=== PATIENT | female | born 1940 | race Caucasian/White ===

== ENCOUNTER 2017-08-18 11:52 | Emergency (ER) | payer MEDICARE ==
[~2017-08-18] VITALS: Ht 160 cm; Wt 54.0 kg
[2017-08-18 11:56] VITALS: BP 133/62; PULSE 100; RESP 17; TEMP 97.7; O2SAT 98
[2017-08-18] MEDS ORDERED: METO25TA3 PO (12:20)
[2017-08-18] MEDS ORDERED: ESTR.3 PO (12:20)
[2017-08-18] MEDS ORDERED: SODIUM CHLOR 0.9% 1000 ML INJ 1,000 ML IV SCH (12:39)
[2017-08-18] MEDS ORDERED: SODIUM CHLORIDE 0.9% FLUSH 10 ML FLUSH IV FLUSH PRN (12:45)
[2017-08-18] MEDS ORDERED: KETOROLAC TROMETHAMINE 30 MG/ML (IVP) VIAL IVP ONE (12:45)
[2017-08-18 12:49] VITALS: PULSE 110; RESP 18; O2SAT 99
[2017-08-18 12:52] LABS: AUTOMATED NEUTROPHIL # 5.3 TH/MM3 (1.8-7.7); BASOPHIL # 0.1 TH/MM3 (0-0.2); BASOPHIL % 0.7 % (0.0-2.0); EOSINOPHIL # 0.1 TH/MM3 (0-0.4); EOSINOPHIL % 1.8 % (0.0-4.0); HEMATOCRIT 39.6 % (35.0-46.0); HEMOGLOBIN 13.2 GM/DL (11.6-15.3); LYMPH % 25.9 % (9.0-44.0); LYMPHOCYTE # 2.1 TH/MM3 (1.0-4.8); MEAN CELL VOLUME 93.5 FL (80.0-100.0); MEAN CORPUSCULAR HEMOGLOBIN 31.1 PG (27.0-34.0); MEAN CORPUSCULAR HGB CONC 33.2 % (32.0-36.0); MEAN PLATELET VOLUME 9.7 FL (7.0-11.0); MONO % 7.3 % (0.0-8.0); MONOCYTE # 0.6 TH/MM3 (0-0.9); NEUT % 64.3 % (16.0-70.0); PLATELET COUNT 222 TH/MM3 (150-450); RED BLOOD COUNT 4.24 MIL/MM3 (4.00-5.30); RED CELL DISTRIBUTION WIDTH 13.1 % (11.6-17.2); WHITE BLOOD COUNT 8.2 TH/MM3 (4.0-11.0)
[2017-08-18 13:00] LABS: BACTERIA, URINE OCC /hpf; BILIRUBIN, URINE NEG (NEG); BLOOD, URINE NEG (NEG); GLUCOSE,URINE NEG (NEG); KETONE, URINE NEG (NEG); NITRITE,URINE NEG (NEG); SQUAMOUS EPITHELIAL CELL URINE 3 /hpf (0-5); URINE COLOR LIGHT-YELLOW (YELLW/STRAW); URINE LEUKOCYTE ESTERASE NEG (NEG)
[2017-08-18 13:39] LABS: ALBUMIN 3.4 GM/DL (3.4-5.0); BLOOD UREA NITROGEN 14 MG/DL (7-18); CALCIUM 8.8 MG/DL (8.5-10.1); CREATININE 0.73 MG/DL (0.50-1.00); GLOMERULAR FILTRATION RATE 77 ML/MIN (>89); GLUCOSE,RANDOM 85 MG/DL (74-106); TOTAL PROTEIN 7.3 GM/DL (6.4-8.2)
[2017-08-18 13:40] LABS: ALKALINE PHOSPHATASE 38 U/L (45-117); ALT (GPT) 15 U/L (10-53); AST (GOT) 16 U/L (15-37); BICARBONATE 26.8 MEQ/L (21.0-32.0); CHLORIDE 106 MEQ/L (98-107); SODIUM (NA) 140 MEQ/L (136-145); TOTAL BILIRUBIN ADULT 0.7 MG/DL (0.2-1.0)
[2017-08-18] MEDS ORDERED: CIPR-9 PO (14:05)
[2017-08-18] MEDS ORDERED: METR-1 PO (14:05)
--- NOTE | 2017-08-18 14:05 | PD ---
HPI Chief Complaint: Abdominal Pain Time Seen by Provider: 12:08 Travel History International Travel<30 days: No Contact w/Intl Traveler<30days: No Traveled to known affect area: No History of Present Illness HPI The patient 76 years old and complains of pain in the abdomen primarily in the left lower quadrant. She has a history of diverticulitis and states the pain feels similar. Typically the pain comes for about 3 days and then goes. This time around the pain has been going on for days now and she arrives with complaints as noticed. No diarrhea or bloody stool. No vomiting. Patient denies any history of colonoscopy. Timing constant. PFSH Past Medical History Cardiovascular Problems: Yes (IRREGULAR HEART JOVANNY, POSSIBLY A-FIB) Diverticulitis: Yes Tetanus Vaccination: Never Vaccinated Past Surgical History Cholecystectomy: Yes Hysterectomy: Yes (TOTAL ) Tonsillectomy: Yes Social History Alcohol Use: Yes (rare) Tobacco Use: No Substance Use: No Allergies-Medications (Allergen,Severity, Reaction): Coded Allergies: acetaminophen (Verified Allergy, Severe, Anaphylaxis, 08/18/17) codeine (Verified Allergy, Severe, Anaphylaxis, 08/18/17) Reported Meds & Prescriptions Reported Meds & Active Scripts Active Flagyl (Metronidazole) 500 Mg Tab 500 Mg PO TID 10 Days Cipro (Ciprofloxacin HCl) 500 Mg Tab 500 Mg PO BID 10 Days Reported Premarin (Estrogens Conjugated) 0.3 Mg Tab 0.3 Mg PO HS Metoprolol Tartrate 25 Mg Tab 12.5 Mg PO HS Review of Systems Except as stated in HPI: all other systems reviewed are Neg General / Constitutional: No: Fever Physical Exam Narrative GENERAL: 68-year-old female pleasant well-nourished well-developed Vital Signs Date Time Temp Pulse Resp B/P (MAP) Pulse Ox O2 Delivery O2 Flow Rate FiO2 08/18/17 12:49 110 18 99 Room Air 08/18/17 12:49 99 Room Air 08/18/17 12:10 18 08/18/17 11:56 97.7 100 17 133/62 (85) 98 SKIN: Warm and dry. HEAD: Atraumatic. Normocephalic. EYES: Pupils equal and round. No scleral icterus. No injection or drainage. ENT: No nasal bleeding or discharge. Mucous membranes pink and moist. NECK: Trachea midline. No JVD. CARDIOVASCULAR: Regular rate and rhythm. RESPIRATORY: No accessory muscle use. Clear to auscultation. Breath sounds equal bilaterally. GASTROINTESTINAL: Tenderness palpation in the left abdomen. The abdomen soft. MUSCULOSKELETAL: Extremities without clubbing, cyanosis, or edema. No obvious deformities. NEUROLOGICAL: Awake and alert. No obvious cranial nerve deficits. Motor grossly within normal limits. Five out of 5 muscle strength in the arms and legs. Normal speech. PSYCHIATRIC: Appropriate mood and affect; insight and judgment normal. Data Data Last Documented VS Vital Signs Date Time Temp Pulse Resp B/P (MAP) Pulse Ox O2 Delivery O2 Flow Rate FiO2 08/18/17 12:49 110 18 99 Room Air 08/18/17 11:56 97.7 133/62 (85) Orders Orders Complete Blood Count With Diff (08/18/17 12:24) Comprehensive Metabolic Panel (08/18/17 12:24) Iv Access Insert/Monitor (08/18/17 12:24) Oxygen Administration (08/18/17 12:24) Oximetry (08/18/17 12:24) Lipase (08/18/17 12:24) Urinalysis - C+S If Indicated (08/18/17 12:24) Ct Abd/Pel W/O Iv Contrast (08/18/17 12:39) Sodium Chlor 0.9% 1000 Ml Inj (Ns 1000 M (08/18/17 12:39) Sodium Chloride 0.9% Flush (Ns Flush) (08/18/17 12:45) Ketorolac Inj (Toradol Inj) (08/18/17 12:45) Ciprofloxacin (Cipro) (08/18/17 14:45) Metronidazole (Flagyl) (08/18/17 14:45) Ed Discharge Order (08/18/17 14:32) Labs Laboratory Tests Test 08/18/17 12:37 White Blood Count 8.2 TH/MM3 Red Blood Count 4.24 MIL/MM3 Hemoglobin 13.2 GM/DL Hematocrit 39.6 % Mean Corpuscular Volume 93.5 FL Mean Corpuscular Hemoglobin 31.1 PG Mean Corpuscular Hemoglobin Concent 33.2 % Red Cell Distribution Width 13.1 % Platelet Count 222 TH/MM3 Mean Platelet Volume 9.7 FL Neutrophils (%) (Auto) 64.3 % Lymphocytes (%) (Auto) 25.9 % Monocytes (%) (Auto) 7.3 % Eosinophils (%) (Auto) 1.8 % Basophils (%) (Auto) 0.7 % Neutrophils # (Auto) 5.3 TH/MM3 Lymphocytes # (Auto) 2.1 TH/MM3 Monocytes # (Auto) 0.6 TH/MM3 Eosinophils # (Auto) 0.1 TH/MM3 Basophils # (Auto) 0.1 TH/MM3 CBC Comment DIFF FINAL Differential Comment Urine Color LIGHT-YELLOW Urine Turbidity CLEAR Urine pH 5.0 Urine Specific [place] 1.005 Urine Protein NEG mg/dL Urine Glucose (UA) NEG mg/dL Urine Ketones NEG mg/dL Urine Occult Blood NEG Urine Nitrite NEG Urine Bilirubin NEG Urine Urobilinogen LESS THAN 2.0 MG/DL Urine Leukocyte Esterase NEG Urine RBC LESS THAN 1 /hpf Urine WBC LESS THAN 1 /hpf Urine Squamous Epithelial Cells 3 /hpf Urine Bacteria OCC /hpf Microscopic Urinalysis Comment CULT NOT INDICATED Blood Urea Nitrogen 14 MG/DL Creatinine 0.73 MG/DL Random Glucose 85 MG/DL Total Protein 7.3 GM/DL Albumin 3.4 GM/DL Calcium Level 8.8 MG/DL Alkaline Phosphatase 38 U/L Aspartate Amino Transf (AST/SGOT) 16 U/L Alanine Aminotransferase (ALT/SGPT) 15 U/L Total Bilirubin 0.7 MG/DL Sodium Level 140 MEQ/L Potassium Level 3.9 MEQ/L Chloride Level 106 MEQ/L Carbon Dioxide Level 26.8 MEQ/L Anion Gap 7 MEQ/L Estimat Glomerular Filtration Rate 77 ML/MIN Lipase 86 U/L [facility] Medical Decision Making Medical Screen Exam Complete: Yes Emergency Medical Condition: Yes Differential Diagnosis Gastritis, pancreatitis, appendicitis, acute cholecystitis, ascending cholangitis, AAA, perforated viscous, mesenteric ischemia, hepatitis, cystitis, hydronephrosis/hydroureter/nephroureter calculus, mesenteric adenitis, biliary colic Narrative Course CBC & BMP Diagram 08/18/17 12:37 Total Protein 7.3, Albumin 3.4, Calcium Level 8.8, Alkaline Phosphatase 38 L, Aspartate Amino Transf (AST/SGOT) 16, Alanine Aminotransferase (ALT/SGPT) 15, Total Bilirubin 0.7 Lipase is normal Urinalysis shows no UTI CT shows diverticulitis The patient is familiar with the disease and has a mild episode currently. Cipro Flagyl scripts. Return precautions discussed. Diagnosis Primary Impression: Diverticulitis Referrals: Primary Care Physician call for appointment Med/Other Pt SpecificInfo: Prescription(s) given Scripts Metronidazole (Flagyl) 500 Mg Tab 500 MG PO TID for Infection for 10 Days, TAB 0 Refills Prov: Jesus Milligan MD 08/18/17 Ciprofloxacin (Cipro) 500 Mg Tab 500 MG PO BID for Infection for 10 Days, #20 TAB 0 Refills Prov: Jesus Milligan MD 08/18/17 Disposition: 01 DISCHARGE HOME Condition: Stable Jesus Milligan MD August 18, 2017 14:05
--- NOTE | 2017-08-18 14:18 | RADRPT ---
EXAM DATE/TIME: 08/18/2017 13:35 [facility] COMPARISON: No previous studies available for comparison. INDICATIONS : Abdominal pain, diverticulitis ORAL CONTRAST: Patient refused oral contrast. RADIATION DOSE: 8.23 CTDIvol (mGy) MEDICAL HISTORY : Diverticulitis. SURGICAL HISTORY : Cholecystectomy. Hysterectomy. ENCOUNTER: Initial ACUITY: 3 days PAIN SCALE: 3/10 LOCATION: abdomen TECHNIQUE: Volumetric scanning of the abdomen and pelvis was performed. Using automated exposure control and ad justment of the mA and/or kV according to patient size, radiation dose was kept as low as reasonably achievable to obtain optimal diagnostic quality images. DICOM format image data is available electro nically for review and comparison. FINDINGS: LOWER LUNGS: The visualized lower lungs are clear. LIVER: Homogeneous density without lesion. There is no dilation of the biliary tree. The patient is status post cholecystectomy. SPLEEN: Normal size without lesion. PANCREAS: Within normal limits. KIDNEYS: Normal in size and shape. There is no mass, stone, or hydronephrosis. ADRENAL GLANDS: Within normal limits. VASCULAR: There is no aortic aneurysm. BOWEL/MESENTERY: There are colonic diverticula seen throughout the colon. There is some induration in the fat surround ing the distal descending colon just above the junction between the descending colon and sigmoid like ly from mild diverticulitis. No abscess is seen. ABDOMINAL WALL: Within normal limits. RETROPERITONEUM: There is no lymphadenopathy. BLADDER: No wall thickening or mass. REPRODUCTIVE: The patient is status post hysterectomy. No pelvic masses seen. INGUINAL: There is no lymphadenopathy or hernia. MUSCULOSKELETAL: There is degenerative change in the lumbar spine. CONCLUSION: Mild diverticulitis at the distal descending colon. There are colonic diverticula seen throughout the colon. Placido Cuevas MD on August 18, 2017 at 14:09 Board Certified Radiologist. This report was verified electronically.
[2017-08-18] MEDS ORDERED: metroNIDAZOLE 500 MG TAB PO ONE (14:45)
[2017-08-18] MEDS ORDERED: CIPROFLOXACIN 500 MG TAB PO ONE (14:45)
== END 2017-08-18 15:08 | disposition home or self-care (01) ==
LOC: NEPC 11:52
DX: K57.32 Diverticulitis of large intestine without perforation or abscess without bleeding (principal); Z88.5 Allergy status to narcotic agent
CPT/HCPCS: 74176; 80053; 81001; 83690; 85025; 96361; 96374; 99284; J1885; J7030